=== PATIENT | male | born 1995 | race Caucasian/White ===

== ENCOUNTER → 2018-05-26 | Outpatient (CLI) | payer OTHER | LOC: COL.CARD 12:21 | DX: Z87.820 Personal history of traumatic brain injury (principal) ==

== ENCOUNTER → 2020-06-27 | Outpatient (CLI) | payer OTHER | LOC: MHCPAIN 09:12 | DX: M47.817 Spondylosis without myelopathy or radiculopathy, lumbosacral region (principal); M54.5 Low back pain; M54.6 Pain in thoracic spine; M53.3 Sacrococcygeal disorders, not elsewhere classified; M54.16 Radiculopathy, lumbar region | CPT/HCPCS: G0463 ==

== ENCOUNTER → 2020-07-05 | Outpatient (CLI) | payer OTHER | LOC: MHCPAIN 07:59 | DX: M47.817 Spondylosis without myelopathy or radiculopathy, lumbosacral region (principal); M54.16 Radiculopathy, lumbar region; M53.3 Sacrococcygeal disorders, not elsewhere classified | CPT/HCPCS: J1100; Q9967 ==

== ENCOUNTER → 2020-07-24 | Outpatient (CLI) | payer OTHER | LOC: MHCPAIN 08:47 | DX: M47.817 Spondylosis without myelopathy or radiculopathy, lumbosacral region (principal); M54.5 Low back pain; M53.3 Sacrococcygeal disorders, not elsewhere classified; G89.29 Other chronic pain | CPT/HCPCS: G0463 ==

== ENCOUNTER → 2020-08-06 | Outpatient (CLI) | payer OTHER | LOC: MHCPAIN 11:43 | DX: M47.817 Spondylosis without myelopathy or radiculopathy, lumbosacral region (principal); M54.5 Low back pain; M53.3 Sacrococcygeal disorders, not elsewhere classified ==

== ENCOUNTER → 2020-08-14 | Outpatient (CLI) | payer OTHER | LOC: MHCPAIN 08:31 | DX: M47.817 Spondylosis without myelopathy or radiculopathy, lumbosacral region (principal); M54.5 Low back pain; M53.3 Sacrococcygeal disorders, not elsewhere classified; G89.29 Other chronic pain | CPT/HCPCS: G0463 ==

== ENCOUNTER → 2020-08-16 | Outpatient (CLI) | payer OTHER | LOC: MHCPAIN 08:01 | DX: M47.817 Spondylosis without myelopathy or radiculopathy, lumbosacral region (principal); M54.5 Low back pain ==